=== PATIENT | female | born 1965 | race Caucasian/White ===

== ENCOUNTER 2018-10-13 17:41 | Emergency (ER) | payer MEDICAID ==
[~2018-10-13] VITALS: Ht 172.7 cm; Wt 77.3 kg
[2018-10-13 19:52] VITALS: Ht 172.7 cm; Wt 77.3 kg
[2018-10-13] MEDS ORDERED: NORCO 7.5/325 T1 TA1 (19:54)
[2018-10-13] MEDS ORDERED: TOPROL XL25 MG (19:54)
[2018-10-13] MEDS ORDERED: OXYBUTYNIN10 MG/BOTT PO (19:55)
[2018-10-13] MEDS ORDERED: LAMICTAL100 MG PO (19:55)
[2018-10-13] MEDS ORDERED: KLONOPIN1 MG PO (19:55)
[2018-10-13] MEDS ORDERED: ZOCOR20 MG PO (19:56)
[2018-10-13] MEDS ORDERED: BACLOFEN10 MG PO (19:56)
[2018-10-13] MEDS ORDERED: THORAZINE10 MG PO (19:57)
[2018-10-13] MEDS ORDERED: LOSARTAN-HCTZ1 EAC2 PO (19:57)
[2018-10-13 20:48] LABS: BASOPHILS 0.2 % (0-2); EOSINOPHILS 5.5 % (0-7); HEMATOCRIT 38.9 % (36.0-48.0); HEMOGLOBIN 13.2 g/dL (12-16); IMMATURE GRANULOCYTES 0.1 % (0-5); LYMPHOCYTES 30.6 % (15-50); MCH 31.1 pg (26.0-34.0); MCHC 33.9 g/dL (31.0-37.0); MCV 91.5 fL (80.0-100.0); MEAN PLATELET VOLUME 10.3 fL (7.4-10.4); MONOCYTES 5.2 % (2-11); NEUTROPHILS 58.4 % (40-80); PLATELET COUNT 266 10x3/uL (130-400); RBC 4.25 10x6/uL (4.00-5.40); RDW 13.2 % (11.5-14.5); WBC 8.9 10x3/uL (4.8-10.8)
[2018-10-13 21:09] LABS: ALKALINE PHOSPHATASE 43 U/L (46-116); ALT (SGPT) 51 U/L (10-68); BILIRUBIN - TOTAL 0.35 mg/dL (0.2-1.3); CALC OSMOLALITY 277 mosm/kg (275-300); CALCIUM 9.1 mg/dL (8.5-10.1); CARBON DIOXIDE 31.4 mmol/L (21.0-32.0); CHLORIDE - SERUM 99 mmol/L (98-107); CREATININE - SERUM 0.7 mg/dL (0.6-1.3); GLUCOSE 96 mg/dL (74-106); POTASSIUM - SERUM 3.7 mmol/L (3.5-5.1); PROTEIN - SERUM 7.3 g/dL (6.4-8.2); SODIUM 139 mmol/L (136-145); UREA NITROGEN 12 mg/dL (7-18); eGFR NON AFRICAN AMERICAN > 90 mL/min (90-120)
[2018-10-13 21:45] LABS: APPEARANCE CLEAR (CLEAR); BILIRUBIN NEGATIVE (NEGATIVE); COLOR YELLOW (YELLOW); GLUCOSE NEGATIVE (NEGATIVE); KETONE NEGATIVE (NEGATIVE); NITRITE POSITIVE (NEGATIVE); PROTEIN NEGATIVE (NEGATIVE); SPECIFIC GRAVITY 1.015 (1.005-1.020); UROBILINOGEN NORMAL (NORMAL)
[2018-10-13 21:46] LABS: BACTERIA MANY /hpf (NONE SEEN); EPITHELIAL CELLS 0-5 /hpf (0-5); RED CELLS - URINE OCC /hpf (0-5)
[2018-10-13 21:50] LABS: UDS - AMPHET NEGATIVE QUAL (NEGATIVE); UDS - BARB NEGATIVE QUAL (NEGATIVE); UDS - BENZO NEGATIVE QUAL (NEGATIVE); UDS - COCAINE NEGATIVE QUAL (NEGATIVE); UDS - OPIATE POSITIVE QUAL (NEGATIVE); UDS - PCP NEGATIVE QUAL (NEGATIVE); UDS - THC POSITIVE QUAL (NEGATIVE)
[2018-10-14 01:56] VITALS: BP 137/89
== END 2018-10-14 01:57 ==
LOC: D.ER 17:41
PROVIDERS: Family Medicine
DX: F23 Brief psychotic disorder (principal); N39.0 Urinary tract infection, site not specified; F17.200 Nicotine dependence, unspecified, uncomplicated